=== PATIENT | male | born 2000 | race Caucasian/White ===

== ENCOUNTER 2024-10-21 14:17 | Emergency (ER) | payer OTHER ==
[~2024-10-21] VITALS: Ht 172.7 cm; Wt 69.0 kg
[2024-10-21 14:20] VITALS: O2SAT 99
[2024-10-21] MEDS ORDERED: LIDO700A30 TP (15:15)
[2024-10-21] MEDS ORDERED: CYCL5TAB3 MT (15:15)
[2024-10-21] MEDS: ACETAMINOPHEN 325MG TABLET PO ONE (15:24)
[2024-10-21 16:20] VITALS: BP 129/87; PULSE 89; RESP 16; TEMP 36.6; O2SAT 99
== END 2024-10-21 16:20 | disposition home or self-care (01) ==
LOC: ER 14:17
DX: M79.604 Pain in right leg (principal); V89.2XXA Person injured in unspecified motor-vehicle accident, traffic, initial encounter; Y93.89 Activity, other specified; Y92.89 Other specified places as the place of occurrence of the external cause; Y99.8 Other external cause status
CPT/HCPCS: 99283